=== PATIENT | female | born 1995 | race Two or more races ===

== ENCOUNTER 2022-02-28 06:26 | Day surgery (SDC) | payer OTHER ==
[~2022-02-28] VITALS: Ht 167.6 cm; Wt 113.4 kg
== END 2022-02-28 23:40 | disposition home or self-care (01) ==
LOC: CIR.AMB 06:26
PROVIDERS: ATTEND Student in an Organized Health Care Education/Training Program
DX: N93.9 Abnormal uterine and vaginal bleeding, unspecified (principal); J45.909 Unspecified asthma, uncomplicated; Z86.16 Personal history of COVID-19; E66.9 Obesity, unspecified; Z20.822 Contact with and (suspected) exposure to COVID-19